=== PATIENT | male | born 1980 | race Caucasian/White ===

== ENCOUNTER → 2017-01-10 | Outpatient (CLI) | payer SELFPAY ==
[~2017-01-10] MED LIST: FLOMAX0.4 MG PO; MOTRIN800 MG PO; PERCOCET 5/31 TABLET PO; ZOFRAN4 MG PO
== END | disposition home or self-care (01) ==
LOC: RAD 08:57
DX: M79.662 Pain in left lower leg (principal); M79.89 Other specified soft tissue disorders
CPT/HCPCS: 93971

== ENCOUNTER → 2017-01-30 | Outpatient (CLI) | payer SELFPAY | END | disposition home or self-care (01) | LOC: CT 16:23 | DX: N20.0 Calculus of kidney (principal); R93.5 Abnormal findings on diagnostic imaging of other abdominal regions, including retroperitoneum | CPT/HCPCS: 74177 ==

== ENCOUNTER 2017-09-03 23:26 | Emergency (ER) | payer SELFPAY ==
[~2017-09-03] VITALS: Ht 175.3 cm; Wt 86.9 kg
[2017-09-04 00:45] LABS: BASOPHIL (%) 0.2 % (0-1); EOSINOPHIL (%) 1.8 % (0-5); EOSINOPHIL COUNT 0.2 K/uL (0-0.3); HEMATOCRIT 39.8 % (38.0-50.0); HEMOGLOBIN 13.1 G/DL (12.5-16.6); IMMATURE GRANULOCYTE (%) 0.5 % (0.0-0.7); LYMPHOCYTE (%) 35.9 % (15-42); LYMPHOCYTE COUNT 3.1 K/uL (1.0-2.8); MCH 28.9 PG (29.0-34.0); MCHC 32.9 G/DL (30.0-36.0); MCV 87.9 FL (86-99); MONOCYTE (%) 10.5 % (3-12); MONOCYTE COUNT 0.9 K/uL (0-0.8); NEUTROPHIL (%) 51.1 % (45-76); NEUTROPHIL COUNT 4.5 K/uL (1.8-6.4); PLATELET COUNT 278 K/uL (156-360); RBC DIS.WIDTH-CV 12.4 % (11.8-14.6); RBC DIS.WIDTH-SD 39.9 % (39-53); RED BLOOD COUNT 4.53 M/uL (4.00-5.50); WHITE BLOOD COUNT 8.7 K/uL (4.1-10.2)
[2017-09-04 00:56] LABS: ALBUMIN 4.1 g/dL (3.2-4.8); CHLORIDE 104 mEq/L (99-109); POTASSIUM 3.8 mEq/L (3.7-5.4); SODIUM 140 mEq/L (136-147)
[2017-09-04 00:58] LABS: GLUCOSE 105 mg/dL (70-99)
[2017-09-04 00:59] LABS: TOTAL PROTEIN 7.4 g/dL (6.4-8.3)
[2017-09-04 01:00] LABS: TOTAL BILIRUBIN 0.2 mg/dL (0.0-1.0)
[2017-09-04 01:02] LABS: ALKALINE PHOSPHATASE 119 IU/L (3-129); GFR ESTIMATE (CALCULATED) > 59 mL/min/ (58.99-99999)
[2017-09-04 01:03] LABS: UREA NITROGEN (BUN) 19 mg/dL (9-23)
[2017-09-04 01:04] LABS: AST (GOT) 20 IU/L (2-34)
[2017-09-04 01:05] LABS: ALT (GPT) 31 IU/L (3-49)
[2017-09-04 01:06] LABS: TROP-I INTERPRETATION NEGATIVE; TROPONIN-I < 0.01 ng/mL (0.0-0.30)
[2017-09-04 01:06] LABS: LIPASE 18 U/L (1.0-51.0)
[2017-09-04 01:11] LABS: APPEARANCE CLEAR ((CLEAR)); BILIRUBIN NEGATIVE; BLOOD NEGATIVE; COLOR YELLOW ((YELLOW)); GLUCOSE (STRIP) NEGATIVE; KETONES NEGATIVE; LEUKOCYTES NEGATIVE; NITRITE NEGATIVE; PROTEIN (STRIP) NEGATIVE; SPECIFIC GRAVITY 1.023 (1.000-1.030); UCUL ADDED? NO; UROBILINOGEN 0.2 MG/DL (0.2-1.0)
[2017-09-04 02:52] VITALS: BP 126/74
== END 2017-09-04 02:52 | disposition home or self-care (01) ==
LOC: EME 23:26
PROVIDERS: Emergency Medicine
DX: S13.4XXA Sprain of ligaments of cervical spine, initial encounter (principal); S40.012A Contusion of left shoulder, initial encounter; R07.9 Chest pain, unspecified; R10.9 Unspecified abdominal pain; M54.6 Pain in thoracic spine; R51 Headache; V47.5XXA Car driver injured in collision with fixed or stationary object in traffic accident, initial encounter; Y92.410 Unspecified street and highway as the place of occurrence of the external cause; J21.9 Acute bronchiolitis, unspecified; R00.0 Tachycardia, unspecified; Z87.442 Personal history of urinary calculi; F17.200 Nicotine dependence, unspecified, uncomplicated
CPT/HCPCS: 70450; 71260; 72125; 72129; 72132; 74177; 80053; 81003; 83690; 84484; 85025; 86850; 86900; 86901; 99281; 99285; J7030